=== PATIENT | male | born 2000 | race Caucasian/White ===

== ENCOUNTER → 2025-06-17 | Emergency (ER) | payer OTHER ==
[~2025-06-17] VITALS: Ht 154.9 cm; Wt 74.8 kg
[~2025-06-17] MED LIST: AMOX-CLAV 875-1 EACH PO; CEFTRIAXONE SODIUM 1,000 MG VIAL IM STA; CEFTRIAXONE SODIUM 1,000 MG VIAL ONE; IBU600 MG PO; KETOROLAC TROMETHAMINE 30 MG VIAL IM STA; KETOROLAC TROMETHAMINE 30 MG VIAL ONE
== END | disposition home or self-care (01) ==
LOC: ER 12:18
DX: H66.91 Otitis media, unspecified, right ear (principal)